=== PATIENT | female | born 1980 | race American Indian/Alaskan Native ===

== ENCOUNTER 2024-10-11 15:07 | Emergency (ER) | payer OTHER ==
[~2024-10-11] VITALS: Ht 157.5 cm; Wt 95.3 kg
[~2024-10-11 15:07] MED LIST: HUMALOG100 UNITS/ SUB-Q; IBUPROFEN600 MG PO; IMITREX5 MG NAS; LEVORA-281 EACH PO; METFORMIN HCL500 MG PO; MIDRIN CAPSULE1 EACH PO; NAPROXEN500 MG PO; SEMGLEE100 UNIT/1 SUB-Q; ZOFRAN4 MG PO; ZYRTEC10 MG PO
[2024-10-11] MEDS ORDERED: OZEMPIC1 MG/0.71 SUB-Q (17:29)
[2024-10-11] MEDS ORDERED: RIZATRIPTAN10 M1 PO (17:30)
[2024-10-11 18:14] LABS: INFLUENZA B NAA NEGATIVE (NEGATIVE); RESPIRATORY SYNCYTIAL VIR NAA NEGATIVE (NEGATIVE)
[2024-10-11] MEDS ORDERED: ONDANSETRON ODT4 MG PO (19:06)
[2024-10-11 19:15] VITALS: BP 128/87
[2024-10-11] MEDS ORDERED: ONDANSETRON 4 MG HOME.PACK SL ONE (19:15)
[2024-10-11] MEDS ORDERED: ONDANSETRON 4 MG TAB ODT SL ONE (19:15)
== END 2024-10-11 19:15 | disposition home or self-care (01) ==
LOC: ED 15:07
PROVIDERS: Emergency Medicine
DX: U07.1 COVID-19 (principal); R11.2 Nausea with vomiting, unspecified; Z88.0 Allergy status to penicillin; Z79.4 Long term (current) use of insulin; Z79.899 Other long term (current) drug therapy
CPT/HCPCS: 71045; 87502; 99283-25; A9270; U0002